=== PATIENT | male | born 1990 | race African-American/Black ===

== ENCOUNTER 2021-05-19 14:43 | Outpatient (CLI) | payer OTHER, SELFPAY ==
--- NOTE | ~2021-05-19 | MR_ITS ---
EXAMINATION: MR brain/brain stem wo/w con DATE: 05/19/2021 16:32 INDICATION: Papilledema and pulsatile tinnitus TECHNIQUE: Magnetic resonance imaging (MRI) of the brain and brainstem was performed . without and wi th 15 mL Multihance intravenous contrast. Sequences included sagittal and axial T1-weighted FSE, axia l diffusion-weighted FS EPI, axial T2*-weighted GRE, axial T2-weighted FLAIR Propeller, axial T2-weig hted Propeller, small pfwqg-te-vhda coronal FIESTA, small khlat-uh-ynul coronal T1-weighted FSE, and small rwfod-lp-qlkt axial T1-weighted SPGR. Postcontrast sequences included axial T1-weighted FSE, sm all xtgrz-qn-zweu coronal T1-weighted FSE, and small jqpcj-ov-xuvo axial T1-weighted SPGR. Apparent d iffusion coefficient (ADC) maps were created. COMPARISON: None. FINDINGS: There are no areas of restricted diffusion to suggest acute infarction. No intracranial hemorrhage or abnormal intracranial mass lesion. There are no intraparenchymal signal abnormalities seen on the ot her pulse sequences. The ventricles are symmetric and normal in size. There are no abnormal extra-axi al fluid collections. Flow voids are seen in the cerebral arteries on the T2-weighted sequences consi stent with their expected patency. Small mucous retention cyst at the floor of the left maxillary sin us. Normal seventh/eighth cranial nerve complexes. No cerebellopontine angles masses. No evidence of mastoid or middle ear fluid. There is increased CSF surrounding the bilateral optic nerve s with the optic nerve sheath diameter measuring 6.5 mm on both the left and right. Visualized orbits and soft tissues are otherwise unremarkable. There are no areas of abnormal enhancement on the post contrast images. IMPRESSION: 1. Dilation of the bilateral optic nerve sheaths which measure up to 6.5 mm diameter with increased C SF surrounding the bilateral optic nerves which is consistent with provided history of papilledema. T his is of indeterminate etiology with otherwise normal brain MR. Reviewed, dictated and finalized at location A. [employer] IMPRESSION: 1. Dilation of the bilateral optic nerve sheaths which measure up to 6.5 mm cammy meter with increased CSF surrounding the bilateral optic nerves which is consis tent with provided history of papilledema. This is of indeterminate etiology wi th otherwise normal brain MR.
[2021-05-19 16:04] LABS: Estimated Glomerular Filt Rate > 60
== END 2021-05-19 14:44 | disposition home or self-care (01) ==
LOC: ANHIMG 14:55
PROVIDERS: PCP Family Medicine; Visit Provider Family Medicine
DX: H93.A3 Pulsatile tinnitus, bilateral (principal); H47.10 Unspecified papilledema
CPT/HCPCS: 70553; A9577